=== PATIENT | male | born 1965 | race Caucasian/White ===

== ENCOUNTER 2019-04-19 11:46 | Inpatient (IN) ==
[2019-04-19 15:19] LABS: Basophils % 0.4 % (0.0-0.8); Eosinophils % 0.3 % (0.00-10.9); Hematocrit 39.9 VOL% (42.0-52.0); Hemoglobin 12.9 GM/DL (14.0-18.0); Immature Granulocytes % 0.4 %; Immature Granulocytes Absolute 0.04 #; Lymphocytes % 9.3 % (21.2-54.2); Mean Corpuscular HGB Conc 32.3 GM/DL (32-36); Mean Corpuscular Volume 92.1 FL (87-102); Mean Platelet Volume 11.5 FL (9.6-12.0); Monocytes % 6.1 % (1.7-12.7); Neutrophils % 83.5 % (38.7-73.9); Platelet Count 45 T/CUMM (130-400); Red Blood Count 4.33 MC/CUMM (3.8-5.5); Red Cell Distribution Width 13.2 % (9.3-17.3); White Blood Count 10.4 T/CUMM (4-12)
[2019-04-19 15:29] LABS: PT Patient Result 11.3 SECS (9.6-12.2); Partial Thromboplastin Time 23.8 SECS (20.8-36.0)
[2019-04-19 15:34] LABS: Calcium 8.3 MG/DL (8.5-10.1); Osmolality,Calculated 288.8 MOS/KG (273-304)
[2019-04-19 15:43] LABS: Lymphocytes 9 % (20-55); Segmented Neutrophils 85 % (50-85)
[2019-04-19 15:44] LABS: Ovalocytes Slight; Platelet Estimate Decreased
[2019-04-19 15:45] LABS: Microcytosis Slight; Total Cells Counted 100
[2019-04-19] MEDS ORDERED: NITROGLYCERIN 2% OINT 1 INCH/GM PACK TOP ONE (15:45)
[2019-04-19] MEDS ORDERED: NITROGLYCERIN DRIP 50 MG/250 ML BOTTLE IV PRN (16:27)
[2019-04-19 17:32] LABS: Troponin I 11.7 NG/ML (0.00-0.045)
[2019-04-19] MEDS: SODIUM CHLORIDE 0.9% 1,000 ML IV SCH (17:40)
[2019-04-19 20:10] LABS: Troponin I 6.85 NG/ML (0.00-0.045)
[2019-04-19] MEDS ORDERED: ONDANSETRON 4 MG/2 ML VIAL IV PRN (21:30)
[2019-04-19] MEDS: MORPHINE 4 MG/1 ML VIAL IV PRN (21:41)
[2019-04-19] MEDS: CHLORHEXIDINE 0.12% ORAL RINSE 60 ML BOTTLE SWISH/SPIT SCH (22:15)
[2019-04-19] MEDS: CHLORHEXIDINE 4% SOLN 118 ML BOTTLE TOP SCH (22:30)
[2019-04-20 04:37] LABS: Basophils % 0.2 % (0.0-0.8); Eosinophils % 0.1 % (0.00-10.9); Hematocrit 39.3 VOL% (42.0-52.0); Hemoglobin 12.7 GM/DL (14.0-18.0); Immature Granulocytes % 0.3 %; Immature Granulocytes Absolute 0.04 #; Lymphocytes # 0.9 10*3/uL (1.4-4.0); Lymphocytes % 6.7 % (21.2-54.2); Mean Corpuscular HGB Conc 32.3 GM/DL (32-36); Mean Corpuscular Volume 92.5 FL (87-102); Mean Platelet Volume 11.6 FL (9.6-12.0); Monocytes % 6.7 % (1.7-12.7); Red Blood Count 4.25 MC/CUMM (3.8-5.5); Red Cell Distribution Width 13.4 % (9.3-17.3); White Blood Count 13.8 T/CUMM (4-12)
[2019-04-20] MEDS: MORPHINE 4 MG/1 ML VIAL IV PRN ×2 (04:38→11:30)
[2019-04-20 04:39] LABS: Platelet Count 47 T/CUMM (130-400)
[2019-04-20 05:06] LABS: Anisocytosis Slight
[2019-04-20 05:07] LABS: Platelet Estimate Decreased
[2019-04-20 05:17] LABS: Bilirubin,Total 0.9 MG/DL (0.2-1.0); Calcium 8.2 MG/DL (8.5-10.1); Osmolality,Calculated 279.5 MOS/KG (273-304); Total Protein 6.2 G/DL (6.4-8.3)
[2019-04-20] MEDS ORDERED: DEXTROSE 5% NACL 0.45% 1,000 ML IV SCH (06:30)
[2019-04-20] MEDS ORDERED: DEXTROSE 50% 25 GM/50 ML VIAL IV PRN (08:41)
[2019-04-20] MEDS ORDERED: GLUCAGON 1 MG VIAL IM PRN (08:41)
[2019-04-20] MEDS ORDERED: methylPREDNISolone SOD SUC 125 MG/2 ML VIAL IV ONE (08:41)
[2019-04-20] MEDS ORDERED: ZALEPLON 5 MG CAPSULE PO PRN (08:42)
[2019-04-20] MEDS: CHLORHEXIDINE 0.12% ORAL RINSE 60 ML BOTTLE SWISH/SPIT SCH ×2 (09:05→21:32)
[2019-04-20] MEDS: INSULIN REGULAR 100 UNIT/ML SUBCUT SCH ×3 (11:17→20:57)
[2019-04-20] MEDS: CHLORHEXIDINE 4% SOLN 118 ML BOTTLE TOP SCH (15:30)
[2019-04-20] MEDS ORDERED: SERTRALINE 25 MG TABLET PO SCH (21:00)
[2019-04-20] MEDS ORDERED: ATORVASTATIN 80 MG TABLET PO SCH (21:00)
[2019-04-20] MEDS: SODIUM CHLORIDE 0.9% 1,000 ML IV SCH (23:55)
[2019-04-21] MEDS: CHLORHEXIDINE 4% SOLN 118 ML BOTTLE TOP SCH (03:30)
[2019-04-21] MEDS ORDERED: PAPAVERINE 60 MG/2 ML VIAL ONE (04:51)
[2019-04-21] MEDS ORDERED: VANCOMYCIN 1,000 MG VIAL ONE (04:51)
[2019-04-21 05:43] LABS: Basophils % 0.3 % (0.0-0.8); Eosinophils % 0.2 % (0.00-10.9); Hematocrit 38.2 VOL% (42.0-52.0); Hemoglobin 12.4 GM/DL (14.0-18.0); Immature Granulocytes % 0.4 %; Immature Granulocytes Absolute 0.06 #; Lymphocytes # 1.5 10*3/uL (1.4-4.0); Lymphocytes % 9.3 % (21.2-54.2); Mean Corpuscular HGB Conc 32.5 GM/DL (32-36); Mean Corpuscular Volume 91.8 FL (87-102); Mean Platelet Volume 11.2 FL (9.6-12.0); Monocytes % 10.2 % (1.7-12.7); Neutrophils % 79.6 % (38.7-73.9); Red Blood Count 4.16 MC/CUMM (3.8-5.5); Red Cell Distribution Width 13.3 % (9.3-17.3); White Blood Count 15.8 T/CUMM (4-12)
[2019-04-21 05:51] LABS: Platelet Count 89 T/CUMM (130-400)
[2019-04-21] MEDS ORDERED: HEPARIN/NACL 0.9% 2 UNITS/ML 500 ML IV ONE (05:52)
[2019-04-21] MEDS ORDERED: SUFentanil 50 MCG/ML AMP ONE (05:53)
[2019-04-21] MEDS ORDERED: MIDAZOLAM 10 MG/2 ML VIAL ONE (05:53)
[2019-04-21] MEDS ORDERED: SUFentanil 250 MCG/5 ML AMP ONE (05:53)
[2019-04-21 05:58] LABS: Calcium 8.9 MG/DL (8.5-10.1); Osmolality,Calculated 282.3 MOS/KG (273-304)
[2019-04-21] MEDS ORDERED: DIAZEPAM 5 MG TABLET PO ONE (06:00)
[2019-04-21] MEDS ORDERED: FAMOTIDINE 20 MG TABLET PO ONE (06:00)
[2019-04-21] MEDS ORDERED: ePHEDrine 50 MG/ML AMP ONE (06:18)
[2019-04-21 07:19] LABS: Apearance,Urine CLEAR (Clear); Bilirubin,Urine Negative (Negative); Blood, Urine Negative (Negative); Glucose,Urine (UA) Negative (Negative); Ketones,Urine Negative (Negative); Mucus,Urine Occasional /LPF (Occasional); Nitrite,Urine Negative (Negative); Protein,Urine Negative; Urine Color Yellow (Yellow); Urine Specific Gravity 1.016 (1.001-1.035); Urine Urobilinogen < 2.0 EU/DL (0.2-1.0); WBC,Urine <1 /HPF (0-6)
[2019-04-21 07:39] LABS: ABG Base Excess 2.9 MMOL/L (-2.5-2.5); ABG Oxygen Saturation 99.8 % (95-100); ABG PCO2 36.5 MM HG (35-48); ABG PH 7.468 (7.35-7.45); ABG TCO2 23.5 MMOL/L (23-27); Glucose Heart Surgery 122 MG/DL (74-106); Hematocrit Heart Surgery 34.5 PERCENT (42-52); Hemoglobin Heart Surgery 11.2 G/DL (14.0-18.0); PCO2 Patient Temp Arterial 36.5 MMHG; PH Patient Temp Arterial 7.468; Patient Temperature 37 CELCIUS; Potassium Heart/CVR 3.7 MMOL/L (3.5-5.1); Sodium Heart/CVR 139 MMOL/L (135-145)
[2019-04-21] MEDS ORDERED: CEFUROXIME 1,500 MG VIAL ONE (07:41)
[2019-04-21] MEDS ORDERED: SODIUM BICARBONATE 50 MEQ/50 ML VIAL IV ONE ×3 (07:57→09:56)
[2019-04-21] MEDS ORDERED: PHENYLEPHRINE DRIP 0 MG/0 ML PREMIX IV ONE (07:57)
[2019-04-21] MEDS ORDERED: CALCIUM CHLORIDE 1,000 MG/10 ML SYRINGE IV ONE (07:57)
[2019-04-21] MEDS ORDERED: POTASSIUM CHLORIDE RIDER 100 ML IV ONE (07:58)
[2019-04-21] MEDS ORDERED: ALBUMIN 5% 12.5 GM/250 ML VIAL IV ONE ×2 (07:58→09:55)
[2019-04-21 08:52] LABS: Hematocrit Heart Surgery 25.7 PERCENT (42-52); Hemoglobin Heart Surgery 8.3 G/DL (14.0-18.0); PCO2 Patient Temp Venous 39.4 MM HG; PH Patient Temp Venous 7.46; PO2 Patient Temp Venous 40.3 MM HG; Potassium Heart/CVR 4.4 MMOL/L (3.5-5.1); VBG Base Excess 3.9 MEQ/L (0-4); VBG HCO3 27.7 MEQ/L (24-28); VBG Oxygen Saturation 80.1 %; VBG PCO2 39.4 MMHG (41-51); VBG PH 7.46; VBG PO2 40.3 MMHG (17-40)
[2019-04-21 09:19] LABS: Hematocrit Heart Surgery 26.9 PERCENT (42-52); Hemoglobin Heart Surgery 8.7 G/DL (14.0-18.0); PCO2 Patient Temp Venous 32.6 MM HG; PH Patient Temp Venous 7.518; PO2 Patient Temp Venous 33.6 MM HG; Potassium Heart/CVR 4.8 MMOL/L (3.5-5.1); VBG Base Excess 3.8 MEQ/L (0-4); VBG HCO3 27.5 MEQ/L (24-28); VBG Oxygen Saturation 79.1 %; VBG PCO2 35.9 MMHG (41-51); VBG PH 7.487; VBG PO2 38.7 MMHG (17-40)
[2019-04-21] MEDS ORDERED: MAGNESIUM SULFATE 5 GM/10 ML VIAL IV ONE (09:54)
[2019-04-21] MEDS ORDERED: PROTAMINE SULFATE 250 MG/25 ML VIAL IV ONE (09:54)
[2019-04-21] MEDS ORDERED: MANNITOL 100 GM/500 ML BAG IV ONE (09:54)
[2019-04-21] MEDS ORDERED: DEXTROSE 5% KCL 20 MEQ 20 MEQ/1,000 ML BAG IV ONE (09:54)
[2019-04-21] MEDS ORDERED: FUROSEMIDE 20 MG/2 ML VIAL ONE ×2 (09:55→11:00)
[2019-04-21] MEDS ORDERED: HEPARIN 10,000 UNIT/10 ML VIAL ONE ×2 (09:55→11:24)
[2019-04-21] MEDS ORDERED: methylPREDNISolone SOD SUC 1,000 MG/8 ML VIAL ONE (09:56)
[2019-04-21] MEDS ORDERED: PROTAMINE SULFATE 50 MG/5 ML VIAL IV ONE (09:56)
[2019-04-21] MEDS ORDERED: THROMBIN TOPICAL (RECOMBINANT) 5,000 UNIT VIAL TOP ONE (09:58)
[2019-04-21 09:59] LABS: ABG Base Excess 0.6 MMOL/L (-2.5-2.5); ABG Oxygen Saturation 96.3 % (95-100); ABG PCO2 37.1 MM HG (35-48); ABG PH 7.432 (7.35-7.45); ABG PO2 75.3 MM HG (80-95); ABG TCO2 22.7 MMOL/L (23-27); Glucose Heart Surgery 204 MG/DL (74-106); Hematocrit Heart Surgery 28.1 PERCENT (42-52); Hemoglobin Heart Surgery 9.1 G/DL (14.0-18.0); Ionized Calcium Arterial 1.27 MMOL/L (1.21-1.46); PCO2 Patient Temp Arterial 37.1 MMHG; PH Patient Temp Arterial 7.432; PO2 Patient Temp Arterial 75.3 MM HG; Patient Temperature 37 CELCIUS; Potassium Heart/CVR 3.6 MMOL/L (3.5-5.1); Sodium Heart/CVR 136 MMOL/L (135-145)
[2019-04-21] MEDS ORDERED: TISSUE ADHESIVE 1 EACH APPLICATOR TOP ONE ×2 (10:07→10:23)
[2019-04-21] MEDS: CHLORHEXIDINE 0.12% ORAL RINSE 60 ML BOTTLE SWISH/SPIT SCH ×2 (10:30→21:59)
[2019-04-21] MEDS: INSULIN REGULAR 100 UNIT/ML SUBCUT SCH (10:30)
[2019-04-21] MEDS ORDERED: DEXTROSE 50% 25 GM/50 ML VIAL IV PRN ×2 (10:57)
[2019-04-21] MEDS ORDERED: MIDAZOLAM 2 MG/2 ML VIAL IV PRN (10:57)
[2019-04-21] MEDS ORDERED: MAGNESIUM SULF RIDER 4 GM in PREMIX 1 EACH IV PRN (10:57)
[2019-04-21] MEDS ORDERED: MAGNESIUM SULF RIDER 2 GM in PREMIX 1 EACH IV PRN (10:57)
[2019-04-21] MEDS ORDERED: CALCIUM CHLORIDE 1,000 MG/10 ML SYRINGE IV PRN (10:57)
[2019-04-21] MEDS ORDERED: ONDANSETRON 4 MG/2 ML VIAL IV PRN (10:57)
[2019-04-21] MEDS ORDERED: POTASSIUM CHLORIDE RIDER 10 MEQ in PREMIX 1 EACH IV PRN (10:57)
[2019-04-21] MEDS ORDERED: CHLORHEXIDINE 4% SOLN 118 ML BOTTLE TOP PRN (10:57)
[2019-04-21] MEDS ORDERED: ACETAMINOPHEN 650 MG SUPP RECTAL PRN (10:57)
[2019-04-21] MEDS ORDERED: INSULIN REGULAR 100 UNIT/ML IV PRN (10:57)
[2019-04-21] MEDS ORDERED: VECURONIUM 10 MG VIAL IV ONE (11:00)
[2019-04-21] MEDS ORDERED: ESMOLOL 100 MG/10 ML VIAL IV ONE (11:00)
[2019-04-21] MEDS ORDERED: INSULIN REGULAR DRIP 100 ML IV SCH (11:00)
[2019-04-21] MEDS ORDERED: PHENYLEPHRINE 10 MG/1 ML VIAL IV ONE (11:00)
[2019-04-21] MEDS ORDERED: CALCIUM CHLORIDE 1,000 MG/10 ML VIAL IV ONE (11:00)
[2019-04-21] MEDS ORDERED: SEVOFLURANE 1 UNIT/15 MINUTE INH ONE (11:00)
[2019-04-21] MEDS ORDERED: METOPROLOL TARTRATE 5 MG/5 ML VIAL IV ONE ×4 (11:01→13:19)
[2019-04-21] MEDS ORDERED: LACTATED RINGERS 1,000 ML IV ONE (11:01)
[2019-04-21] MEDS ORDERED: ETOMIDATE 40 MG/20 ML VIAL IV ONE (11:01)
[2019-04-21] MEDS ORDERED: NITROGLYCERIN DRIP 50 MG/250 ML BOTTLE IV ONE ×2 (11:01→11:59)
[2019-04-21] MEDS ORDERED: SODIUM CHLORIDE 0.9% 2,000 ML IV ONE (11:01)
[2019-04-21] MEDS: SODIUM CHLORIDE 0.45% 1,000 ML IV SCH ×2 (11:05→11:06)
[2019-04-21] MEDS ORDERED: AMINOCAPROIC ACID 5,000 MG/20 ML VIAL ONE (11:17)
[2019-04-21 11:31] LABS: Basophils % 0.3 % (0.0-0.8); Eosinophils % 0.2 % (0.00-10.9); Hematocrit 32.6 VOL% (42.0-52.0); Hemoglobin 10.6 GM/DL (14.0-18.0); Immature Granulocytes % 0.8 %; Immature Granulocytes Absolute 0.09 #; Lymphocytes # 0.6 10*3/uL (1.4-4.0); Lymphocytes % 5.1 % (21.2-54.2); Mean Corpuscular HGB Conc 32.5 GM/DL (32-36); Mean Corpuscular Volume 91.8 FL (87-102); Mean Platelet Volume 11.1 FL (9.6-12.0); Monocytes % 7.2 % (1.7-12.7); Neutrophils % 86.4 % (38.7-73.9); Platelet Count 83 T/CUMM (130-400); Red Blood Count 3.55 MC/CUMM (3.8-5.5); Red Cell Distribution Width 13.4 % (9.3-17.3); White Blood Count 11.9 T/CUMM (4-12)
[2019-04-21 11:34] LABS: ABG Base Excess 1.3 MMOL/L (-2.5-2.5); ABG HCO3 25.5 MMOL/L (20-26); ABG Oxygen Saturation 94.3 % (95-100); ABG PCO2 36.3 MM HG (35-48); ABG PH 7.448 (7.35-7.45); ABG TCO2 22.6 MMOL/L (23-27); Glucose Heart Surgery 155 MG/DL (74-106); Hematocrit Heart Surgery 32.6 PERCENT (42-52); Hemoglobin Heart Surgery 10.6 G/DL (14.0-18.0); Potassium Heart/CVR 3.2 MMOL/L (3.5-5.1)
[2019-04-21 11:36] LABS: Hematocrit Heart Surgery 33.9 PERCENT (42-52); PCO2 Patient Temp Venous 45.5 MM HG; PH Patient Temp Venous 7.409; PO2 Patient Temp Venous 30.7 MM HG; Potassium Heart/CVR 3.5 MMOL/L (3.5-5.1); VBG Base Excess 3.6 MEQ/L (0-4); VBG HCO3 26.9 MEQ/L (24-28); VBG Oxygen Saturation 58.5 %; VBG PCO2 45.5 MMHG (41-51); VBG PH 7.409; VBG PO2 30.7 MMHG (17-40)
[2019-04-21 11:57] LABS: Blood Urea Nitrogen 17 MG/DL (7-18); Calcium 8.6 MG/DL (8.5-10.1); Glucose 156 MG/DL (74-106)
[2019-04-21 12:01] LABS: INR 1.2; PT Patient Result 12.6 SECS (9.6-12.2)
[2019-04-21] MEDS ORDERED: NITROGLYCERIN DRIP 50 MG/250 ML BOTTLE IV PRN (12:04)
[2019-04-21 12:09] LABS: Partial Thromboplastin Time 80.7 SECS (20.8-36.0)
[2019-04-21] MEDS: ALBUMIN 5% 12.5 GM in PREMIX 1 EACH IV PRN ×2 (12:13→15:07)
[2019-04-21] MEDS: SODIUM CHLORIDE 0.9% 250 ML IV PRN ×6 (12:15→15:42)
[2019-04-21] MEDS: POTASSIUM CHLORIDE RIDER 20 MEQ in PREMIX 1 EACH IV PRN ×3 (12:20→18:41)
[2019-04-21] MEDS ORDERED: ASPIRIN CHEW 81 MG TABLET PO ONE (13:19)
[2019-04-21] MEDS ORDERED: ALBUTEROL/IPRATROPIUM 3 ML NEB RESP TX PRN (13:20)
[2019-04-21] MEDS: ESMOLOL 2,500 MG/250 ML PREMIX IV SCH ×2 (16:09→23:13)
[2019-04-21] MEDS: MORPHINE 10 MG/1 ML VIAL IV PRN ×2 (17:54→23:31)
[2019-04-21 18:15] LABS: ABG Base Excess -0.8 MMOL/L (-2.5-2.5); ABG HCO3 23.7 MMOL/L (20-26); ABG Oxygen Saturation 96.3 % (95-100); ABG PCO2 43.6 MM HG (35-48); ABG PH 7.362 (7.35-7.45); ABG TCO2 22.4 MMOL/L (23-27); Glucose Heart Surgery 166 MG/DL (74-106); Hematocrit Heart Surgery 33.4 PERCENT (42-52); Hemoglobin Heart Surgery 10.8 G/DL (14.0-18.0); Potassium Heart/CVR 4.1 MMOL/L (3.5-5.1)
[2019-04-21] MEDS: CEFUROXIME INJ 1,500 MG in SYRINGE 1 EACH IV SCH (18:34)
[2019-04-22] MEDS: SODIUM CHLORIDE 0.45% 1,000 ML IV SCH ×2 (00:55→08:38)
[2019-04-22 03:16] LABS: Basophils % 0.1 % (0.0-0.8); Hemoglobin 10.2 GM/DL (14.0-18.0); Immature Granulocytes % 0.6 %; Immature Granulocytes Absolute 0.12 #; Lymphocytes # 0.7 10*3/uL (1.4-4.0); Lymphocytes % 3.4 % (21.2-54.2); Mean Corpuscular HGB Conc 30.9 GM/DL (32-36); Mean Corpuscular Volume 95.7 FL (87-102); Mean Platelet Volume 11.1 FL (9.6-12.0); Monocytes % 7.3 % (1.7-12.7); Neutrophils % 88.6 % (38.7-73.9); Platelet Count 140 T/CUMM (130-400); Red Blood Count 3.45 MC/CUMM (3.8-5.5); Red Cell Distribution Width 14.2 % (9.3-17.3); White Blood Count 21.1 T/CUMM (4-12)
[2019-04-22 04:02] LABS: Lymphocytes 4 % (20-55); Segmented Neutrophils 88 % (50-85); Total Cells Counted 100
[2019-04-22 04:03] LABS: Hypochromasia 1+; Platelet Estimate Normal
[2019-04-22] MEDS: MORPHINE 4 MG/1 ML VIAL IV PRN ×2 (05:01→07:55)
[2019-04-22] MEDS: CEFUROXIME INJ 1,500 MG in SYRINGE 1 EACH IV SCH ×2 (07:01→18:34)
[2019-04-22] MEDS ORDERED: FUROSEMIDE 40 MG/4 ML VIAL IV ONE (09:11)
[2019-04-22] MEDS: FUROSEMIDE 40 MG TABLET PO SCH (10:30)
[2019-04-22] MEDS: CARVEDILOL 3.125 MG TABLET PO SCH ×2 (10:30→20:28)
[2019-04-22] MEDS: ATORVASTATIN 40 MG TABLET PO SCH ×2 (10:30→20:31)
[2019-04-22] MEDS: CHLORHEXIDINE 0.12% ORAL RINSE 60 ML BOTTLE SWISH/SPIT SCH ×2 (10:30→20:31)
[2019-04-22] MEDS: CLOPIDOGREL 75 MG TABLET PO SCH (10:30)
[2019-04-22] MEDS ORDERED: ATORVASTATIN 40 MG TABLET PO SCH (10:38)
[2019-04-22] MEDS ORDERED: CEFUROXIME INJ 1,500 MG in SYRINGE 1 EACH IV ONE (11:00)
[2019-04-22] MEDS ORDERED: KETOROLAC 15 MG/1 ML VIAL IV ONE ×2 (11:07→19:38)
[2019-04-22] MEDS: PANTOPRAZOLE 40 MG VIAL IV SCH (11:34)
[2019-04-22] MEDS: ASPIRIN EC 325 MG TABLET PO SCH (11:35)
[2019-04-22] MEDS: INSULIN REGULAR 100 UNIT/ML SUBCUT SCH ×3 (12:25→20:31)
[2019-04-22] MEDS: MORPHINE 10 MG/1 ML VIAL IV PRN (15:22)
[2019-04-22] MEDS: ESMOLOL 2,500 MG/250 ML PREMIX IV SCH (16:07)
[2019-04-22] MEDS ORDERED: ACETAMINOPHEN 325 MG TABLET PO PRN (19:39)
[2019-04-23] MEDS: MORPHINE 10 MG/1 ML VIAL IV PRN ×2 (00:05→07:17)
[2019-04-23 04:04] LABS: Basophils # 0.1 10*3/uL (0.0-0.2); Basophils % 0.3 % (0.0-0.8); Eosinophils % 0.1 % (0.00-10.9); Hematocrit 31.1 VOL% (42.0-52.0); Hemoglobin 9.8 GM/DL (14.0-18.0); Immature Granulocytes % 0.7 %; Immature Granulocytes Absolute 0.11 #; Lymphocytes # 1.4 10*3/uL (1.4-4.0); Lymphocytes % 8.3 % (21.2-54.2); Mean Corpuscular HGB Conc 31.5 GM/DL (32-36); Mean Corpuscular Volume 94.2 FL (87-102); Mean Platelet Volume 11.7 FL (9.6-12.0); Monocytes % 7.3 % (1.7-12.7); Neutrophils % 83.3 % (38.7-73.9); Platelet Count 149 T/CUMM (130-400); Red Cell Distribution Width 13.4 % (9.3-17.3); White Blood Count 16.8 T/CUMM (4-12)
[2019-04-23 04:26] LABS: Calcium 8.1 MG/DL (8.5-10.1); Osmolality,Calculated 283.4 MOS/KG (273-304)
[2019-04-23] MEDS: POTASSIUM CHLORIDE RIDER 20 MEQ in PREMIX 1 EACH IV PRN (05:11)
[2019-04-23] MEDS: INSULIN REGULAR 100 UNIT/ML SUBCUT SCH ×3 (07:37→16:19)
[2019-04-23] MEDS: FUROSEMIDE 40 MG TABLET PO SCH (08:36)
[2019-04-23] MEDS: ASPIRIN EC 325 MG TABLET PO SCH (08:36)
[2019-04-23] MEDS: PANTOPRAZOLE 40 MG VIAL IV SCH (08:36)
[2019-04-23] MEDS: CLOPIDOGREL 75 MG TABLET PO SCH (08:37)
[2019-04-23] MEDS: CHLORHEXIDINE 0.12% ORAL RINSE 60 ML BOTTLE SWISH/SPIT SCH (08:39)
[2019-04-23] MEDS: CARVEDILOL 3.125 MG TABLET PO SCH (08:39)
[2019-04-23] MEDS ORDERED: LOSARTAN 25 MG TABLET PO SCH (09:00)
[2019-04-23 16:25] VITALS: BP 123/72
[2019-04-23] MEDS ORDERED: LIDOCAINE 2% 20 ML VIAL ONE (18:45)
[2019-04-23] MEDS ORDERED: MORPHINE 4 MG/1 ML VIAL IV ONE (18:55)
[2019-04-23] MEDS ORDERED: SODIUM CHLORIDE 0.9% 1,000 ML IV PRN ×3 (19:09→19:33)
[2019-04-23] MEDS ORDERED: PHENYLEPHRINE DRIP 0 MG/0 ML PREMIX IV ONE (19:11)
[2019-04-23] MEDS ORDERED: SUCCINYLCHOLINE 200 MG/10 ML VIAL ONE (19:31)
[2019-04-23] MEDS ORDERED: ETOMIDATE 20 MG/10 ML VIAL IV ONE ×2 (19:31→19:39)
[2019-04-23] MEDS ORDERED: ROCURONIUM 100 MG/10 ML VIAL IV ONE (19:33)
[2019-04-23] MEDS ORDERED: CALCIUM CHLORIDE 1,000 MG/10 ML SYRINGE IV ONE (19:39)
[2019-04-23] MEDS ORDERED: NOREPINEPHRINE 4 MG/4 ML VIAL IV ONE (19:39)
[2019-04-23] MEDS ORDERED: SODIUM BICARBONATE 50 MEQ/50 ML SYRINGE IV ONE (19:39)
[2019-04-23] MEDS ORDERED: EPINEPHrine 1 MG/10 ML SYRINGE ONE (19:39)
[2019-04-23] MEDS ORDERED: ATROPINE 1 MG/10 ML SYRINGE ONE (19:39)
[2019-04-23] MEDS ORDERED: CALCIUM GLUCONATE 1,000 MG/10 ML VIAL IV ONE (19:54)
[2019-04-24] MEDS ORDERED: PANTOPRAZOLE 20 MG TABLET PO SCH (09:00)
== END 2019-04-23 20:07 | disposition expired | DRG 235 ==
LOC: N.ICU 14:24 → N.CVR 04-21 09:01 → N.ICU 04-22 09:43 → N.TELES 04-23 11:05 → N.ICU 04-24 00:11
PROVIDERS: ADMIT Thoracic Surgery (Cardiothoracic Vascular Surgery); ATTEND Thoracic Surgery (Cardiothoracic Vascular Surgery)